=== PATIENT | female | born 1960 | race Caucasian/White ===

== ENCOUNTER 2020-08-31 10:26 | Inpatient (IN) | payer MEDICAID ==
[~2020-08-31] VITALS: Ht 157.5 cm; Wt 68.0 kg
[2020-08-31] MEDS ORDERED: TOPI100T38 PO (10:52)
[2020-08-31] MEDS ORDERED: MILK150C2 PO (10:52)
[2020-08-31] MEDS ORDERED: TACR1CAP2 PO (10:52)
[2020-08-31] MEDS ORDERED: CHOL500062 PO (10:52)
[2020-08-31] MEDS ORDERED: OMEP20CA15 PO (10:52)
[2020-08-31] MEDS ORDERED: QUET200T PO (10:52)
[2020-08-31] MEDS ORDERED: LEVO100T10 PO (10:52)
[2020-08-31] MEDS ORDERED: PROP20TA7 PO (10:52)
[2020-08-31] MEDS ORDERED: PRED2.5T PO (10:52)
--- NOTE | 2020-08-31 10:59 | NUR ---
Dr [email or web address], medical screening exam in progress
[2020-08-31] MEDS ORDERED: IV NORMAL SALINE 1000 ML BAG IV ONE ×2 (11:15→15:30)
[2020-08-31 12:00] LABS: BASOPHILS % (AUTO) 0.3 % (0.0-2.0); EOSINOPHILS % (AUTO) 1.3 % (0.0-7.0); HEMATOCRIT 32.2 % (31.2-41.9); HEMOGLOBIN 11.2 g/dL (10.9-14.3); LYMPHOCYTES # (AUTO) 0.4 K/uL (20.0-40.0); LYMPHOCYTES % (AUTO) 13.3 % (20.5-51.5); MEAN CORPUSCULAR HGB CONC 35 g/dL (32.3-35.6); MEAN CORPUSCULAR VOLUME 103.3 fL (75.5-95.3); MONOCYTES # (AUTO) 0.3 K/uL (2.0-10.0); MONOCYTES % (AUTO) 7.8 % (0.0-11.0); NEUTROPHILS # (AUTO) 2.6 K/uL (1.8-8.9); NEUTROPHILS % (AUTO) 77.3 % (38.5-71.5); PLATELET COUNT (AUTO) 55 K/uL (179-408); RED BLOOD CELL COUNT(AUTO) 3.12 MIL/uL (3.63-4.92); WHITE BLOOD COUNT (AUTO) 3.3 K/uL (3.8-11.8)
[2020-08-31 12:12] LABS: BILIRUBIN,TOTAL 3.5 mg/dL (0.2-1.0); CREATININE 1.7 mg/dL (0.6-1.3); POTASSIUM 3.4 mmol/L (3.5-5.1); TOTAL PROTEIN, SERUM 6.4 g/dL (6.4-8.2)
--- NOTE | 2020-08-31 12:27 | NUR ---
Dr [email or web address]
[2020-08-31] MEDS ORDERED: CEFTRIAXONE 1 G in IV DEXTROSE 5% 50 ML IV ONE (12:30)
[2020-08-31] MEDS ORDERED: AZITHROMYCIN IV 500 MG in IV DEXTROSE 5% 250 ML IV ONE (12:30)
[2020-08-31] MEDS ORDERED: CEFTRIAXONE 1 G VIAL ONE (12:43)
[2020-08-31] MEDS ORDERED: AZITHROMYCIN 500MG/ D5W 250ML IVPB **ER PYXIS ONLY IV ONE (12:50)
[2020-08-31 15:50] LABS: *BILIRUBIN,URIN 1+ (NEGATIVE); *BLOOD, URINE NEGATIVE (NEGATIVE); *CLARITY,URINE CLEAR (CLEAR); *COLOR,URINE YELLOW (YELLOW); *KETONES,URINE NEGATIVE (NEGATIVE); LEUKOCYTE ESTERASE ,URINE NEGATIVE (NEGATIVE); NITRITE, URINE POSITIVE (NEGATIVE); UGLUCOSE NEGATIVE (NEGATIVE)
[2020-08-31] MEDS ORDERED: ACETAMINOPHEN 325 MG TABLET PO PRN (16:45)
[2020-08-31] MEDS ORDERED: ONDANSETRON 4 MG/2 ML VIAL IV PRN (16:45)
[2020-08-31] MEDS ORDERED: MORPHINE SULFATE 2 MG/1 ML DISP.SYRIN IV PRN (16:45)
[2020-08-31] MEDS ORDERED: HYDROCODONE/APAP 5-325MG TABLET PO PRN (16:45)
[2020-08-31 18:57] LABS: BACTERIA,URINE FEW /HPF (NONE SEEN); RBC,URINE 0-3 /HPF (0-3); SQUAMOUS EPITHELIAL CELL,UR FEW /HPF (NONE SEEN)
--- NOTE | 2020-08-31 19:28 | NUR ---
Patient is resting comfortably on gurney, pending available inpatient telemetry bed & nurse@this time. Patient voided 2x by bedpan. Hospital bed and bedside commode were requested from EVS /housekeeping. SpO2 levels=high 90's at room air. No shortness of breath seen or coughing heard@this time. Hands off report given to CONI Stevens & 7pm charge loader Matt.
[2020-08-31] MEDS ORDERED: QUETIAPINE FUMARATE 200 MG TABLET ONE (19:52)
[2020-08-31] MEDS: PROPRANOLOL HCL 20 MG TABLET PO SCH (19:53)
[2020-08-31] MEDS: TOPIRAMATE 100 MG TABLET PO SCH (19:57)
[2020-08-31] MEDS: TACROLIMUS ANHYDROUS 0.5 MG CAPSULE PO SCH (19:57)
[2020-08-31] MEDS: QUETIAPINE FUMARATE 200 MG TABLET PO SCH (19:57)
--- NOTE | 2020-08-31 20:30 | NUR ---
PATIENT WAS PLACED IN BEDPAN X 1 EPISODE LOOSE STOOL. PATIENT CLEANED.NO C/O ANY PAIN AT THIS TIME.
[2020-09-01] MEDS: predniSONE 20 MG TABLET PO SCH (09:00)
[2020-09-01] MEDS: LEVOTHYROXINE SODIUM 100 MCG TABLET PO SCH (09:00)
[2020-09-01] MEDS: PANTOPRAZOLE SODIUM 40 MG TABLET.DR PO SCH (09:00)
[2020-09-01] MEDS ORDERED: MILK THISTLE 150 MG PO SCH (09:00)
[2020-09-01] MEDS: TOPIRAMATE 100 MG TABLET PO SCH ×2 (09:50→17:23)
[2020-09-01] MEDS: PROPRANOLOL HCL 20 MG TABLET PO SCH ×2 (09:52→17:28)
[2020-09-01] MEDS: CHOLECALCIFEROL 1,000 UNIT TABLET PO SCH (09:53)
[2020-09-01] MEDS: TACROLIMUS ANHYDROUS 0.5 MG CAPSULE PO SCH ×2 (09:54→17:26)
[2020-09-01] MEDS ORDERED: PANTOPRAZOLE SODIUM 40 MG TABLET.DR PO ONE (10:02)
[2020-09-01] MEDS ORDERED: predniSONE 20 MG TABLET ONE (10:02)
[2020-09-01] MEDS ORDERED: LEVOTHYROXINE SODIUM 125 MCG TABLET ONE (10:03)
[2020-09-01] MEDS ORDERED: LEVOTHYROXINE SODIUM 100 MCG TABLET ONE (10:04)
[2020-09-01] MEDS ORDERED: CEFTRIAXONE /D5W 50ML IVPB **ER PYXIS IV ONE (12:30)
[2020-09-01] MEDS ORDERED: AZITHROMYCIN 500MG/ D5W 250ML IVPB **ER PYXIS ONLY IV ONE (12:31)
[2020-09-01] MEDS: CEFTRIAXONE 1 G in IV DEXTROSE 5% 50 ML IV SCH (12:34)
--- NOTE | 2020-09-01 13:07 | NUR ---
HOSPITAL LUNCH TRAY PROVIDED FOR PT.
[2020-09-01] MEDS: AZITHROMYCIN IV 500 MG in IV DEXTROSE 5% 250 ML IV SCH (13:35)
[2020-09-01] MEDS: QUETIAPINE FUMARATE 200 MG TABLET PO SCH (18:28)
--- NOTE | 2020-09-01 18:53 | NUR ---
REPORT GIVEN TO FILTER CLEANER RINKU ALVARADO.
[2020-09-01] MEDS ORDERED: QUETIAPINE FUMARATE 200 MG TABLET ONE (19:01)
--- NOTE | 2020-09-01 19:30 | NUR ---
received patient in shift report, no signs of acute distress noted
--- NOTE | 2020-09-02 02:37 | NUR ---
No signs of acute distress noted, patient noted resting in bed
[2020-09-02 06:17] LABS: BASOPHILS % (AUTO) 0.6 % (0.0-2.0); EOSINOPHILS % (AUTO) 0.1 % (0.0-7.0); HEMATOCRIT 30.4 % (31.2-41.9); HEMOGLOBIN 10.5 g/dL (10.9-14.3); LYMPHOCYTES # (AUTO) 0.3 K/uL (20.0-40.0); LYMPHOCYTES % (AUTO) 11.4 % (20.5-51.5); MEAN CORPUSCULAR HEMOGLOBIN 36.1 uug (24.7-32.8); MEAN CORPUSCULAR HGB CONC 34 g/dL (32.3-35.6); MEAN CORPUSCULAR VOLUME 104.8 fL (75.5-95.3); MONOCYTES # (AUTO) 0.1 K/uL (2.0-10.0); NEUTROPHILS % (AUTO) 81.9 % (38.5-71.5); WHITE BLOOD COUNT (AUTO) 2.4 K/uL (3.8-11.8)
[2020-09-02 06:36] LABS: BILIRUBIN,DIRECT 1.8 mg/dL (0.0-0.2); BILIRUBIN,TOTAL 1.9 mg/dL (0.2-1.0); CREATININE 2.3 mg/dL (0.6-1.3); POTASSIUM 3.8 mmol/L (3.5-5.1); TOTAL PROTEIN, SERUM 5.6 g/dL (6.4-8.2)
[2020-09-02 06:51] LABS: PLATELET COUNT (AUTO) 47 K/uL (179-408)
--- NOTE | 2020-09-02 07:11 | NUR ---
Report given to Flora DOBBS
--- NOTE | 2020-09-02 07:15 | NUR ---
Pt is awake A/O x4, denies pain. Room air 02 sat remaines at 98% and pt is in no distress. BP 87/47, per pt she is always has low BP and has no symptoms.
[2020-09-02] MEDS: PROPRANOLOL HCL 20 MG TABLET PO SCH (08:30)
[2020-09-02] MEDS ORDERED: PANTOPRAZOLE SODIUM 40 MG TABLET.DR PO ONE (08:40)
[2020-09-02] MEDS ORDERED: LEVOTHYROXINE SODIUM 100 MCG TABLET ONE (08:41)
[2020-09-02] MEDS: TACROLIMUS ANHYDROUS 0.5 MG CAPSULE PO SCH ×2 (08:46→17:26)
[2020-09-02] MEDS: PANTOPRAZOLE SODIUM 40 MG TABLET.DR PO SCH (08:46)
[2020-09-02] MEDS: LEVOTHYROXINE SODIUM 100 MCG TABLET PO SCH (08:47)
[2020-09-02] MEDS: predniSONE 20 MG TABLET PO SCH (08:52)
[2020-09-02] MEDS: CHOLECALCIFEROL 1,000 UNIT TABLET PO SCH (08:53)
[2020-09-02] MEDS ORDERED: predniSONE 20 MG TABLET ONE (08:53)
[2020-09-02] MEDS: TOPIRAMATE 100 MG TABLET PO SCH ×2 (08:53→17:26)
[2020-09-02] MEDS ORDERED: DEXAMETHASONE SOD PHOSPHATE 4 MG INJ IV SCH (10:16)
[2020-09-02] MEDS: ZINC SULFATE 220 MG CAPSULE PO SCH (10:51)
[2020-09-02] MEDS ORDERED: CEFTRIAXONE /D5W 50ML IVPB **ER PYXIS IV ONE (12:20)
[2020-09-02] MEDS: CEFTRIAXONE 1 G in IV DEXTROSE 5% 50 ML IV SCH (12:25)
[2020-09-02 13:02] LABS: THYROID STIMULATING HORMONE 1.709 mIU/mL (0.358-3.740)
[2020-09-02] MEDS: AZITHROMYCIN IV 500 MG in IV DEXTROSE 5% 250 ML IV SCH (13:24)
[2020-09-02] MEDS ORDERED: AZITHROMYCIN 500MG/ D5W 250ML IVPB **ER PYXIS ONLY IV ONE (13:24)
[2020-09-02 15:54] LABS: LYMPHOCYTES % (MANUAL) 14 % (20-40); MONOCYTES % (MANUAL) 6 % (2-10); NEUTROPHILS % (MANUAL) 80 % (42-75)
[2020-09-02] MEDS: QUETIAPINE FUMARATE 200 MG TABLET PO SCH (17:26)
[2020-09-02] MEDS ORDERED: QUETIAPINE FUMARATE 200 MG TABLET ONE (17:27)
--- NOTE | 2020-09-02 19:30 | NUR ---
Received patient in shift report, Patient noted resting watching tv, no changes noted
--- NOTE | 2020-09-03 02:00 | NUR ---
Report given to Sophia DOBBS Tele/covid unit
--- NOTE | 2020-09-03 04:00 | NUR ---
Pt. admitted to Tele/ Covid, under care of PIPE FITTER SOFT COPPER Merissa Jha, Room: 320 Belongs List completed and all belongings sent with patient
[2020-09-03 04:25] VITALS: BP 84/50
--- NOTE | 2020-09-03 04:30 | NUR ---
Received Pt on the floor via wheelchair. Admitted to Tele/ Covid, under care of Dr. Gurvinder Worley. Axox4, no acute distress noted. On room air saturating @97-100%. States feeling very tired. LAC 20G IV intact and patent. Oriented pt to the unit. All needs attended too. Snack provided. Skin intact. Belongs List completed and placed in chart. Will continue plan of care.
[2020-09-03] MEDS: IV NS 1000 ML 1,000 ML IV PRN ×2 (05:55→19:30)
--- NOTE | 2020-09-03 06:00 | NUR ---
No acute distress noted. Patient is resting. Running NS @ 100 ml/hr. Continue plan of care. Will endorse to oncoming nurse.
--- NOTE | 2020-09-03 07:45 | NUR ---
Received PT in bed, awake AO X 4. PT is pleasant and cooperative. Makes needs known to staff. No acute distress or SOB noted. Safety measures provided, call light within reach, bed low and lock. Will continue to monitor.
[2020-09-03 08:04] LABS: BASOPHILS % (AUTO) 0.2 % (0.0-2.0); EOSINOPHILS % (AUTO) 0.2 % (0.0-7.0); HEMATOCRIT 32.8 % (31.2-41.9); HEMOGLOBIN 10.9 g/dL (10.9-14.3); LYMPHOCYTES # (AUTO) 0.3 K/uL (20.0-40.0); LYMPHOCYTES % (AUTO) 16.7 % (20.5-51.5); MEAN CORPUSCULAR HEMOGLOBIN 36.4 uug (24.7-32.8); MEAN CORPUSCULAR HGB CONC 33 g/dL (32.3-35.6); MEAN CORPUSCULAR VOLUME 109.9 fL (75.5-95.3); MONOCYTES # (AUTO) 0.1 K/uL (2.0-10.0); MONOCYTES % (AUTO) 7.2 % (0.0-11.0); NEUTROPHILS # (AUTO) 1.5 K/uL (1.8-8.9); NEUTROPHILS % (AUTO) 75.7 % (38.5-71.5); RED BLOOD CELL COUNT(AUTO) 2.99 MIL/uL (3.63-4.92)
[2020-09-03 08:29] LABS: CREATININE 2.9 mg/dL (0.6-1.3); MAGNESIUM 2.4 mg/dL (1.8-2.4); PHOSPHOROUS 3.2 mg/dL (2.5-4.9); POTASSIUM 3.9 mmol/L (3.5-5.1)
[2020-09-03] MEDS: ZINC SULFATE 220 MG CAPSULE PO SCH (09:53)
[2020-09-03] MEDS: CHOLECALCIFEROL 1,000 UNIT TABLET PO SCH (09:53)
[2020-09-03] MEDS: PANTOPRAZOLE SODIUM 40 MG TABLET.DR PO SCH (09:53)
[2020-09-03] MEDS: TACROLIMUS ANHYDROUS 0.5 MG CAPSULE PO SCH ×2 (09:54→17:36)
[2020-09-03] MEDS: DEXAMETHASONE SOD PHOSPHATE 4 MG INJ IV SCH (09:54)
[2020-09-03] MEDS: LEVOTHYROXINE SODIUM 100 MCG TABLET PO SCH (10:02)
[2020-09-03] MEDS: TOPIRAMATE 100 MG TABLET PO SCH ×2 (10:31→16:55)
[2020-09-03 12:01] VITALS: BP 76/26
[2020-09-03 12:43] LABS: PLATELET COUNT (AUTO) 44 K/uL (179-408)
--- NOTE | 2020-09-03 12:46 | NUR ---
Received critical results on platelets 44. Notified Dr. Kaur CENSUS TAKER at 1243. CENSUS TAKER acknowledge report at 1246.
[2020-09-03] MEDS ORDERED: AZITHROMYCIN IV 500 MG in IV DEXTROSE 5% 250 ML IV SCH (13:00)
[2020-09-03] MEDS: AZITHROMYCIN 250 MG TABLET PO SCH (13:27)
[2020-09-03 15:32] VITALS: BP 103/60
[2020-09-03 15:35] LABS: LYMPHOCYTES % (MANUAL) 18 % (20-40); MONOCYTES % (MANUAL) 6 % (2-10); NEUTROPHILS % (MANUAL) 76 % (42-75)
[2020-09-03] MEDS: CEFTRIAXONE 1 G in IV DEXTROSE 5% 50 ML IV SCH (16:55)
[2020-09-03] MEDS: QUETIAPINE FUMARATE 200 MG TABLET PO SCH (17:36)
--- NOTE | 2020-09-03 19:45 | NUR ---
PATIENT ALERT ORIENTED, NO SOB NO CHEST PAIN. PATIENT ON TELE MONITOR SINUS RHYTHM AT THIS TIME. PATIENT HAS NO COMPLAIN OF PAIN AT THIS TIME. PATIENT REMAIN ON CONTACT/DROPLET PRECAUTION, AFEBRILE. CONT TO MONITOR.
--- NOTE | 2020-09-03 19:54 | NUR ---
PT in bed, awake with safety measures. No acute distress or SOB noted. No complain of pain. Makes needs known to staff. Safety measures with call light within reach, bed low and lock.
[2020-09-03 20:00] VITALS: BP 94/59
[2020-09-04 00:15] VITALS: BP 91/54
[2020-09-04 04:00] VITALS: BP 92/58
[2020-09-04] MEDS: IV NS 1000 ML 1,000 ML IV PRN ×3 (04:45→19:00)
[2020-09-04] MEDS: TOPIRAMATE 100 MG TABLET PO SCH ×2 (09:09→18:33)
[2020-09-04] MEDS: ZINC SULFATE 220 MG CAPSULE PO SCH (09:10)
[2020-09-04] MEDS: PANTOPRAZOLE SODIUM 40 MG TABLET.DR PO SCH (09:10)
[2020-09-04] MEDS: DEXAMETHASONE SOD PHOSPHATE 4 MG INJ IV SCH (09:10)
[2020-09-04] MEDS: LEVOTHYROXINE SODIUM 100 MCG TABLET PO SCH (09:11)
[2020-09-04] MEDS: CHOLECALCIFEROL 1,000 UNIT TABLET PO SCH (10:38)
[2020-09-04] MEDS: TACROLIMUS ANHYDROUS 0.5 MG CAPSULE PO SCH ×2 (11:14→18:53)
[2020-09-04 11:48] VITALS: BP 95/53
[2020-09-04] MEDS: AZITHROMYCIN 250 MG TABLET PO SCH (12:54)
[2020-09-04] MEDS: CEFTRIAXONE 1 G in IV DEXTROSE 5% 50 ML IV SCH (15:23)
[2020-09-04 16:08] VITALS: BP 101/59
[2020-09-04 16:49] LABS: BASOPHILS % (AUTO) 0.6 % (0.0-2.0); EOSINOPHILS % (AUTO) 0.2 % (0.0-7.0); HEMATOCRIT 30.2 % (31.2-41.9); HEMOGLOBIN 10.2 g/dL (10.9-14.3); LYMPHOCYTES # (AUTO) 0.2 K/uL (20.0-40.0); LYMPHOCYTES % (AUTO) 9.7 % (20.5-51.5); MEAN CORPUSCULAR HEMOGLOBIN 35.7 uug (24.7-32.8); MEAN CORPUSCULAR HGB CONC 34 g/dL (32.3-35.6); MONOCYTES # (AUTO) 0.1 K/uL (2.0-10.0); MONOCYTES % (AUTO) 3.4 % (0.0-11.0); NEUTROPHILS # (AUTO) 1.9 K/uL (1.8-8.9); NEUTROPHILS % (AUTO) 86.1 % (38.5-71.5); RED BLOOD CELL COUNT(AUTO) 2.87 MIL/uL (3.63-4.92); WHITE BLOOD COUNT (AUTO) 2.2 K/uL (3.8-11.8)
[2020-09-04 16:51] LABS: BILIRUBIN,TOTAL 1.7 mg/dL (0.2-1.0); CREATININE 2.9 mg/dL (0.6-1.3); MAGNESIUM 2.2 mg/dL (1.8-2.4); PHOSPHOROUS 3.3 mg/dL (2.5-4.9); POTASSIUM 4.2 mmol/L (3.5-5.1); TOTAL PROTEIN, SERUM 5.8 g/dL (6.4-8.2)
[2020-09-04 17:20] LABS: PLATELET COUNT (AUTO) 43 K/uL (179-408)
[2020-09-04 18:06] LABS: LYMPHOCYTES % (MANUAL) 10 % (20-40); MONOCYTES % (MANUAL) 4 % (2-10); NEUTROPHILS % (MANUAL) 86 % (42-75)
[2020-09-04] MEDS: QUETIAPINE FUMARATE 200 MG TABLET PO SCH (18:33)
[2020-09-04 20:06] VITALS: BP 94/56
--- NOTE | 2020-09-04 20:08 | NUR ---
PATIENT STABLE THROUGHOUT SHIFT, ON RA DENIED SOB OR DISTRESS. ON TELE DENIED CHEST PAIN. SAFETY PRECAUTION IN PLACE. CLARIFIED WITH [facility] REGARDING TACROLIMUS TROUGH LEVEL. PER RANJAN, BLOOD IS SENT OUT AND RESULTS MIGHT TAKE A FEW DAYS. RANJAN SPOKE WITH PHARMACIST AND PER RANJAN, PHARMACIST STATED OK TO GIVE MEDICATION AWAITING RESULTS. PATIENT ALSO INFORMED.
[2020-09-04 21:22] VITALS: BP 94/56
[2020-09-05 00:03] VITALS: BP 101/61
[2020-09-05 04:03] VITALS: BP 111/71
[2020-09-05] MEDS: PANTOPRAZOLE SODIUM 40 MG TABLET.DR PO SCH (08:54)
[2020-09-05] MEDS: LEVOTHYROXINE SODIUM 100 MCG TABLET PO SCH (08:54)
[2020-09-05] MEDS: DEXAMETHASONE SOD PHOSPHATE 4 MG INJ IV SCH (08:54)
[2020-09-05] MEDS: CHOLECALCIFEROL 1,000 UNIT TABLET PO SCH (08:54)
[2020-09-05] MEDS: ZINC SULFATE 220 MG CAPSULE PO SCH (08:54)
[2020-09-05] MEDS: TOPIRAMATE 100 MG TABLET PO SCH ×2 (08:54→17:35)
[2020-09-05] MEDS: TACROLIMUS ANHYDROUS 0.5 MG CAPSULE PO SCH ×2 (10:41→17:35)
[2020-09-05 12:00] VITALS: BP 105/51
[2020-09-05 13:39] LABS: CREATININE 2.4 mg/dL (0.6-1.3)
[2020-09-05 14:02] LABS: BASOPHILS % (AUTO) 0.1 % (0.0-2.0); EOSINOPHILS % (AUTO) 0.8 % (0.0-7.0); HEMATOCRIT 31.7 % (31.2-41.9); HEMOGLOBIN 10.5 g/dL (10.9-14.3); LYMPHOCYTES # (AUTO) 0.2 K/uL (20.0-40.0); LYMPHOCYTES % (AUTO) 12.6 % (20.5-51.5); MEAN CORPUSCULAR HEMOGLOBIN 35.4 uug (24.7-32.8); MEAN CORPUSCULAR HGB CONC 33 g/dL (32.3-35.6); MEAN CORPUSCULAR VOLUME 107.1 fL (75.5-95.3); MONOCYTES # (AUTO) 0.2 K/uL (2.0-10.0); MONOCYTES % (AUTO) 7.9 % (0.0-11.0); NEUTROPHILS # (AUTO) 1.5 K/uL (1.8-8.9); NEUTROPHILS % (AUTO) 78.6 % (38.5-71.5); RED BLOOD CELL COUNT(AUTO) 2.96 MIL/uL (3.63-4.92)
[2020-09-05 14:13] LABS: WHITE BLOOD COUNT (AUTO) 1.9 K/uL (3.8-11.8)
[2020-09-05 14:14] LABS: PLATELET COUNT (AUTO) 45 K/uL (179-408)
[2020-09-05 14:43] LABS: A/G RATIO 0.9 (0.7-1.7); ALBUMIN 2.5 g/dL (2.9-4.4); ALPHA-1-GLOBULIN 0.3 g/dL (0.0-0.4); ALPHA-2-GLOBULIN 0.5 g/dL (0.4-1.0); BETA GLOBULIN 0.6 g/dL (0.7-1.3); GAMMA GLOBULIN 1.5 g/dL (0.4-1.8); GLOBULIN, TOTAL 2.9 g/dL (2.2-3.9); M-SPIKE Not Observed g/dL (Not Observed)
[2020-09-05] MEDS: CEFTRIAXONE 1 G in IV DEXTROSE 5% 50 ML IV SCH (15:00)
--- NOTE | 2020-09-05 15:37 | NUR ---
BENNY NOTE/Coordination OF CARE: BENNY spoke with patient regarding placement options. Patient stated she was living in a Sober Living called [facility] however when she got COVID she went to a hotel and can no longer go back to her sober living. Patient stated she receives $923 SSI monthly and gets her next check on the first september. BENNY offered patient Board and Care placement and patient is somewhat agreeable. BENNY spoke with [facility] creative coordinator ([phone]) who stated [facility] [id number] [place] [address] [place] [address] ([phone]). Patient was also provided with Dena's number to call for any questions. BENNY informed window caser Rosario. Addendum: 09/05/20 at 1543 by BHARAT ARIAS BENNY also informed Ada Charge Nurse.
[2020-09-05 15:53] VITALS: BP 106/59
[2020-09-05 16:39] LABS: BAND % (MANUAL) 1 % (0-10); EOSINOPHILS % (MANUAL) 1 % (0-8); LYMPHOCYTES % (MANUAL) 12 % (20-40); MONOCYTES % (MANUAL) 7 % (2-10); NEUTROPHILS % (MANUAL) 79 % (42-75)
[2020-09-05] MEDS: QUETIAPINE FUMARATE 200 MG TABLET PO SCH (17:35)
--- NOTE | 2020-09-05 18:05 | NUR ---
EOSS: No significant acute changes during this shift. No changes in LOC. All due medications given as ordered and tolerated well. . Pt. swab per MD order for COVID-19. Awaiting for placement per SW. Notified Dr. Hollins regarding critical PLT and WBC, no new order from MD. Tolerating RA well, no desaturation. Kept on isolation precaution for COVID-19. All pt. needs attended and met. Safety measures in place. Call light and all frequently used items within pt. reach. Will endorse to oncoming shift accordingly. Addendum: 09/05/20 at 1807 by SHIRA GARCIA RN on TELE
[2020-09-05] MEDS: IV NS 1000 ML 1,000 ML IV PRN (18:22)
[2020-09-05 20:18] VITALS: BP 99/58
[2020-09-06 00:15] VITALS: BP 103/57
[2020-09-06] MEDS: IV NS 1000 ML 1,000 ML IV PRN ×3 (03:38→21:04)
[2020-09-06 04:18] VITALS: BP 106/65
--- NOTE | 2020-09-06 06:19 | NUR ---
PATIENT ALERT ORIENTED, NO SOB NO CHEST PAIN , PATIENT HAS NO COMPLAIN OF PAIN, AFEBRILE, PATIENT SATURATION WNL CONT TO MONITOR.
[2020-09-06 07:06] LABS: HEPATITIS B SURFACE AB Non Reactive (.); HEPATITIS B SURFACE AG Negative (Negative)
[2020-09-06 09:13] LABS: COMPLEMENT, C3 SERUM 54 mg/dL (82-167); COMPLEMENT, C4 SERUM 2 mg/dL (12-38)
[2020-09-06] MEDS: CHOLECALCIFEROL 1,000 UNIT TABLET PO SCH (09:58)
[2020-09-06] MEDS: DEXAMETHASONE SOD PHOSPHATE 4 MG INJ IV SCH (09:58)
[2020-09-06] MEDS: ZINC SULFATE 220 MG CAPSULE PO SCH (09:59)
[2020-09-06] MEDS: LEVOTHYROXINE SODIUM 100 MCG TABLET PO SCH (09:59)
[2020-09-06] MEDS: PANTOPRAZOLE SODIUM 40 MG TABLET.DR PO SCH (09:59)
[2020-09-06] MEDS: TACROLIMUS ANHYDROUS 0.5 MG CAPSULE PO SCH ×2 (09:59→17:46)
[2020-09-06] MEDS: TOPIRAMATE 100 MG TABLET PO SCH ×2 (09:59→17:46)
--- NOTE | 2020-09-06 11:02 | NUR ---
SW NOTE: [phone][facility] and she stated she is able to accept pt today and will provide transportation if needed.
--- NOTE | 2020-09-06 11:22 | NUR ---
SW Note: This SW met with patient to discuss options for placement. This SW mentioned she is accepted at an Independent Living through Brittani coordinator ([phone]). Patient stated she would need to speak to Brittani and will contact her as soon as possible. Patient is unsure to where she wants to go.
--- NOTE | 2020-09-06 11:53 | NUR ---
SW NOTE/Coordination OF CARE: This SW spoke with [facility]ani coordinator ([phone]) who stated she spoke with pt and gave her three Independent Living options. Per Brittani, she stated pt was happy with the options and will wait until discharged to pick one.
[2020-09-06 12:00] VITALS: BP 103/72
[2020-09-06] MEDS: CEFTRIAXONE 1 G in IV DEXTROSE 5% 50 ML IV SCH (14:31)
[2020-09-06 16:00] VITALS: BP 102/62
[2020-09-06] MEDS: QUETIAPINE FUMARATE 200 MG TABLET PO SCH (17:46)
[2020-09-07] VITALS (7 sets, daily range): BP systolic 102–127; BP diastolic 52–70
[2020-09-07] MEDS: IV NS 1000 ML 1,000 ML IV PRN (05:27)
[2020-09-07 06:21] LABS: BASOPHILS % (AUTO) 0.3 % (0.0-2.0); EOSINOPHILS % (AUTO) 1.4 % (0.0-7.0); HEMATOCRIT 28.3 % (31.2-41.9); HEMOGLOBIN 9.5 g/dL (10.9-14.3); LYMPHOCYTES # (AUTO) 0.3 K/uL (20.0-40.0); MEAN CORPUSCULAR HEMOGLOBIN 36.1 uug (24.7-32.8); MEAN CORPUSCULAR HGB CONC 33 g/dL (32.3-35.6); MEAN CORPUSCULAR VOLUME 108.1 fL (75.5-95.3); MONOCYTES # (AUTO) 0.1 K/uL (2.0-10.0); MONOCYTES % (AUTO) 7.6 % (0.0-11.0); NEUTROPHILS # (AUTO) 1.1 K/uL (1.8-8.9); NEUTROPHILS % (AUTO) 72.7 % (38.5-71.5); RED BLOOD CELL COUNT(AUTO) 2.62 MIL/uL (3.63-4.92)
[2020-09-07 06:29] LABS: PLATELET COUNT (AUTO) 42 K/uL (179-408); WHITE BLOOD COUNT (AUTO) 1.5 K/uL (3.8-11.8)
[2020-09-07 07:15] LABS: CREATININE 1.8 mg/dL (0.6-1.3); MAGNESIUM 1.8 mg/dL (1.8-2.4); PHOSPHOROUS 3.6 mg/dL (2.5-4.9)
[2020-09-07 07:43] LABS: POTASSIUM 4.2 mmol/L (3.5-5.1)
[2020-09-07] MEDS: PANTOPRAZOLE SODIUM 40 MG TABLET.DR PO SCH (09:17)
[2020-09-07] MEDS: LEVOTHYROXINE SODIUM 100 MCG TABLET PO SCH (09:17)
[2020-09-07] MEDS: DEXAMETHASONE SOD PHOSPHATE 4 MG INJ IV SCH (09:17)
[2020-09-07] MEDS: TACROLIMUS ANHYDROUS 0.5 MG CAPSULE PO SCH ×2 (09:18→17:54)
[2020-09-07] MEDS: ZINC SULFATE 220 MG CAPSULE PO SCH (09:18)
[2020-09-07] MEDS: CHOLECALCIFEROL 1,000 UNIT TABLET PO SCH (09:18)
[2020-09-07] MEDS: TOPIRAMATE 100 MG TABLET PO SCH ×2 (09:18→17:54)
[2020-09-07] MEDS ORDERED: FUROSEMIDE 40 MG/4 ML VIAL IV ONE (12:45)
[2020-09-07] MEDS ORDERED: TBO-FILGRASTIM 300 MCG/0.5 ML SYRINGE SQ ONE (14:00)
[2020-09-07] MEDS: QUETIAPINE FUMARATE 200 MG TABLET PO SCH (17:54)
--- NOTE | 2020-09-07 18:31 | NUR ---
Patient is alert and oriented x4. Patient is in no acute distress, respirations are even and unlabored. Patient resting quietly and comfortably in bed, bed is in low and locked position. MD made aware of abnormal labs, see order history. Patient complained of nausea, she was offered Zofran but patient refused. Patient is able to tolerate food and fluids, no episodes of vomiting. Patient provided with education about non-pharmacological management for nausea, able to verbalize understanding. Patient's needs met. Call light and personal belongings within reach. Patient seen and examined by Dr. Hollins, update given to MD. No new orders at this time.
[2020-09-07 21:16] LABS: BAND % (MANUAL) 3 % (0-10); LYMPHOCYTES % (MANUAL) 22 % (20-40); MONOCYTES % (MANUAL) 1 % (2-10); NEUTROPHILS % (MANUAL) 74 % (42-75)
[2020-09-08 04:00] VITALS: BP 95/52
[2020-09-08] MEDS: TACROLIMUS ANHYDROUS 0.5 MG CAPSULE PO SCH ×2 (09:11→16:56)
[2020-09-08] MEDS: ZINC SULFATE 220 MG CAPSULE PO SCH (09:12)
[2020-09-08] MEDS: DEXAMETHASONE SOD PHOSPHATE 4 MG INJ IV SCH (09:12)
[2020-09-08] MEDS: CHOLECALCIFEROL 1,000 UNIT TABLET PO SCH (09:12)
[2020-09-08] MEDS: PANTOPRAZOLE SODIUM 40 MG TABLET.DR PO SCH (09:12)
[2020-09-08] MEDS: TOPIRAMATE 100 MG TABLET PO SCH ×2 (09:45→16:56)
[2020-09-08] MEDS: LEVOTHYROXINE SODIUM 100 MCG TABLET PO SCH (09:45)
[2020-09-08 11:47] VITALS: BP 104/57
[2020-09-08 15:09] LABS: BASOPHILS % (AUTO) 0.1 % (0.0-2.0); EOSINOPHILS % (AUTO) 0.1 % (0.0-7.0); HEMATOCRIT 29.4 % (31.2-41.9); HEMOGLOBIN 9.4 g/dL (10.9-14.3); LYMPHOCYTES # (AUTO) 0.3 K/uL (20.0-40.0); MEAN CORPUSCULAR HGB CONC 32 g/dL (32.3-35.6); MEAN CORPUSCULAR VOLUME 112.8 fL (75.5-95.3); MONOCYTES # (AUTO) 0.1 K/uL (2.0-10.0); MONOCYTES % (AUTO) 1.5 % (0.0-11.0); NEUTROPHILS # (AUTO) 8.6 K/uL (1.8-8.9); NEUTROPHILS % (AUTO) 95.3 % (38.5-71.5); RED BLOOD CELL COUNT(AUTO) 2.61 MIL/uL (3.63-4.92); WHITE BLOOD COUNT (AUTO) 9.1 K/uL (3.8-11.8)
[2020-09-08 15:38] LABS: BILIRUBIN,TOTAL 1.9 mg/dL (0.2-1.0); CREATININE 1.7 mg/dL (0.6-1.3); MAGNESIUM 1.6 mg/dL (1.8-2.4); PHOSPHOROUS 2.1 mg/dL (2.5-4.9); POTASSIUM 4.3 mmol/L (3.5-5.1); TOTAL PROTEIN, SERUM 5.4 g/dL (6.4-8.2)
[2020-09-08 15:40] VITALS: BP 107/57
[2020-09-08 15:54] LABS: PLATELET COUNT (AUTO) 40 K/uL (179-408)
[2020-09-08] MEDS: QUETIAPINE FUMARATE 200 MG TABLET PO SCH (17:00)
[2020-09-08 20:00] VITALS: BP 109/63
[2020-09-08 23:13] LABS: LYMPHOCYTES % (MANUAL) 3 % (20-40); MONOCYTES % (MANUAL) 2 % (2-10); NEUTROPHILS % (MANUAL) 95 % (42-75)
--- NOTE | 2020-09-09 00:20 | NUR ---
Received pt sleeping in bed. Aroused easily to verbal stimuli. Alert and oriented. No acute distress noted. Denies pain/ discomfort. Safety measures maintained. Call light and personal items within reach. Will continue to monitor.
[2020-09-09 04:55] VITALS: BP 113/65
--- NOTE | 2020-09-09 07:30 | NUR ---
Received patient in bed, Awake alert and oriented. No sign of distress noted. Safety precautions are in place. Will continue to monitor.
[2020-09-09 10:27] LABS: CREATININE 1.7 mg/dL (0.6-1.3); MAGNESIUM 1.6 mg/dL (1.8-2.4); PHOSPHOROUS 3.2 mg/dL (2.5-4.9); POTASSIUM 3.6 mmol/L (3.5-5.1)
[2020-09-09 10:30] LABS: BASOPHILS % (AUTO) 0.1 % (0.0-2.0); EOSINOPHILS % (AUTO) 0.7 % (0.0-7.0); HEMATOCRIT 29.9 % (31.2-41.9); LYMPHOCYTES # (AUTO) 0.4 K/uL (20.0-40.0); LYMPHOCYTES % (AUTO) 8.1 % (20.5-51.5); MEAN CORPUSCULAR HEMOGLOBIN 36.5 uug (24.7-32.8); MEAN CORPUSCULAR HGB CONC 34 g/dL (32.3-35.6); MEAN CORPUSCULAR VOLUME 108.9 fL (75.5-95.3); MONOCYTES # (AUTO) 0.1 K/uL (2.0-10.0); MONOCYTES % (AUTO) 2.5 % (0.0-11.0); NEUTROPHILS # (AUTO) 4.2 K/uL (1.8-8.9); NEUTROPHILS % (AUTO) 88.6 % (38.5-71.5); RED BLOOD CELL COUNT(AUTO) 2.74 MIL/uL (3.63-4.92); WHITE BLOOD COUNT (AUTO) 4.7 K/uL (3.8-11.8)
[2020-09-09] MEDS: LEVOTHYROXINE SODIUM 100 MCG TABLET PO SCH (11:12)
[2020-09-09] MEDS: ZINC SULFATE 220 MG CAPSULE PO SCH (11:12)
[2020-09-09] MEDS: CHOLECALCIFEROL 1,000 UNIT TABLET PO SCH (11:12)
[2020-09-09] MEDS: TOPIRAMATE 100 MG TABLET PO SCH ×2 (11:13→17:13)
[2020-09-09] MEDS: DEXAMETHASONE SOD PHOSPHATE 4 MG INJ IV SCH (11:13)
[2020-09-09] MEDS: PANTOPRAZOLE SODIUM 40 MG TABLET.DR PO SCH (11:13)
[2020-09-09] MEDS: TACROLIMUS ANHYDROUS 0.5 MG CAPSULE PO SCH ×2 (11:13→17:12)
[2020-09-09] MEDS ORDERED: MAGNESIUM OXIDE 400 MG TABLET PO ONE (11:15)
[2020-09-09 12:00] VITALS: BP 100/61
[2020-09-09 12:41] LABS: PLATELET COUNT (AUTO) 43 K/uL (179-408)
[2020-09-09 16:00] VITALS: BP 119/62
[2020-09-09] MEDS: QUETIAPINE FUMARATE 200 MG TABLET PO SCH (17:12)
[2020-09-09 20:30] VITALS: BP 114/61
--- NOTE | 2020-09-09 22:55 | NUR ---
Received pt resting in bed. AAO X4. No acute distress noted. Denies pain/ discomfort. Safety measures maintained. Call light and personal items within reach. Will continue to monitor.
[2020-09-10 00:22] LABS: EOSINOPHILS % (MANUAL) 4 % (0-8); LYMPHOCYTES % (MANUAL) 4 % (20-40); MONOCYTES % (MANUAL) 1 % (2-10); NEUTROPHILS % (MANUAL) 91 % (42-75)
[2020-09-10 04:38] VITALS: BP 102/62
[2020-09-10] MEDS: PANTOPRAZOLE SODIUM 40 MG TABLET.DR PO SCH (09:42)
[2020-09-10] MEDS: ZINC SULFATE 220 MG CAPSULE PO SCH (09:42)
[2020-09-10] MEDS: LEVOTHYROXINE SODIUM 100 MCG TABLET PO SCH (09:42)
[2020-09-10] MEDS: CHOLECALCIFEROL 1,000 UNIT TABLET PO SCH (09:43)
[2020-09-10] MEDS: TACROLIMUS ANHYDROUS 0.5 MG CAPSULE PO SCH (09:44)
[2020-09-10] MEDS: DEXAMETHASONE SOD PHOSPHATE 4 MG INJ IV SCH (09:45)
[2020-09-10] MEDS: TOPIRAMATE 100 MG TABLET PO SCH (09:46)
[2020-09-10 10:09] LABS: *ANTI-SCLERODERMA-70 AB <0.2 AI (0.0-0.9); *SJOGREN'S ANTI-SS-A <0.2 AI (0.0-0.9); *SJOGREN'S ANTI-SS-B <0.2 AI (0.0-0.9); *SMITH ANTIBODIES <0.2 AI (0.0-0.9); ANTI-DNA(DS) AB, QN <1 IU/mL (0-9)
[2020-09-10 12:00] VITALS: BP 126/68
--- NOTE | 2020-09-10 14:45 | NUR ---
Patient discharged to her sister[facility]. Discharge instructions provided to the patient with verbalized understanding. Discharge papers signed by and given to the patient. All belongings well accounted for and brought with the patient. Patient remains alert, oriented x 4, not in any form of distress, on room air, ambulatory. ID wrist band removed. RISSA peripheral IV line removed with no noted bleeding or signs of infection. Assisted with her needs. Patient picked up by [facility] ambulance via gurney.
== END 2020-09-10 14:30 | disposition home or self-care (01) | DRG 720 ==
LOC: ER 10:26 → TRANSITION 14:43 → TELE-TD3 09-03 03:15 → TELE3 09-03 04:48 → MEDSURG3 09-07 20:20
PROVIDERS: ADMIT Nurse Practitioner Acute Care; ATTEND Internal Medicine
PROC: 05HY33Z Insertion of Infusion Device into Upper Vein, Percutaneous Approach (ICD-10-PCS; principal; 2020-09-05)
DX: A41.89 Other specified sepsis (principal); U07.1 COVID-19; J12.89 Other viral pneumonia; N17.0 Acute kidney failure with tubular necrosis; Z94.4 Liver transplant status; D84.9 Immunodeficiency, unspecified; F10.20 Alcohol dependence, uncomplicated; Z79.899 Other long term (current) drug therapy; E43 Unspecified severe protein-calorie malnutrition; R74.01 Elevation of levels of liver transaminase levels; N18.9 Chronic kidney disease, unspecified; E87.6 Hypokalemia; K72.10 Chronic hepatic failure without coma; R73.9 Hyperglycemia, unspecified; D61.818 Other pancytopenia; Z74.09 Other reduced mobility; D68.59 Other primary thrombophilia; E03.9 Hypothyroidism, unspecified; E87.2 Acidosis; K21.9 Gastro-esophageal reflux disease without esophagitis; D63.8 Anemia in other chronic diseases classified elsewhere
CPT/HCPCS: 36415; 70030-TC; 71045; 76705; 76770; 83605; 83615; 83735; 83970; 84100; 84155; 84165; 84443; 85025; 85651; 85730; 86038; 86140; 86160; 86706; 86803; 87040; 87086; 87340; 93005; A4663; G0378; J0456; J0696; J1100; J1447; J1940; J2405; J7030; J7060; J7507; J7512; Q0144; U0003